=== PATIENT | female | born 1965 | race Caucasian/White ===

== ENCOUNTER 2017-10-08 07:30 | Day surgery (SDC) | payer OTHER ==
[2017-10-08] MEDS ORDERED: SIMETHICONE 40 MG/0.6 ML ML ONE (07:38)
[2017-10-08] MEDS ORDERED: MIDAZOLAM HCL 5 MG/5 ML VIAL ONE (07:38)
[2017-10-08] MEDS ORDERED: fentaNYL CITRATE/PF 100 MCG/2 ML AMP ONE (07:38)
[2017-10-08 08:16] LABS: HCG,QUAL RESULT NEGATIVE (NEGATIVE)
[2017-10-08 16:22] VITALS: BP_SYST 115
== END 2017-10-08 10:00 | disposition home or self-care (01) ==
LOC: SDS 07:30 → SMU 07:30 → SDS 10:00
PROVIDERS: ATTEND Surgery
DX: A63.0 Anogenital (venereal) warts (principal); K62.82 Dysplasia of anus
CPT/HCPCS: 45380; 84703; 88305; J2250; J3010